=== PATIENT | male | born 1960 | race African-American/Black ===

== ENCOUNTER 2018-11-23 10:57 | Day surgery (SDC) | payer OTHER ==
[2018-11-22 13:21] VITALS: BMI 24.8
[~2018-11-23 10:57] MED LIST: ACETAMINOPHEN 325 MG TABLET (FP) PO PRN; OFLOXACIN 0.3% OPHTHALMIC SOLUTION 5 ML BOTTLE OP SCH; TRIAMCINOLONE ACET 40MG/1ML VIAL IJ ONE
[2018-11-23 11:18] VITALS: TEMP 97.5
[2018-11-23] MEDS ORDERED: OFLOXACIN 0.3% OPHTHALMIC SOLUTION 5 ML BOTTLE ONE (11:21)
[2018-11-23] MEDS ORDERED: MIDAZOLAM HCL 2 MG/2 ML SINGLE DOSE VIAL ONE (11:50)
[2018-11-23] MEDS ORDERED: TRIAMCINOLONE ACET 40MG/1ML VIAL ONE (12:06)
[2018-11-23] MEDS ORDERED: TETRACAINE 0.5% OPHTH SOLN 2 ML BOTTLE OS ONE (12:31)
[2018-11-23] MEDS ORDERED: POVIDONE-IODINE 5% OPHTHALMIC PREP 30 ML SOLUTION OS ONE (12:32)
[2018-11-23] MEDS ORDERED: LIDOCAINE 1%/EPI 1:100000 (20 ML MULTI DOSE VIAL) IJ ONE ×2 (12:38)
[2018-11-23] MEDS ORDERED: BSS (NA/CA/MG/K) BALANCED SALT SOLUTION OPHTH SOLN 15 ML BOTTLE OS ONE (12:38)
[2018-11-23] MEDS ORDERED: TRIAMCINOLONE ACET 40MG/1ML VIAL IJ ONE (13:04)
[2018-11-23] MEDS ORDERED: ONDANSETRON 4 MG/2 ML VIAL IVPUSH PRN (13:46)
--- NOTE | 2018-11-23 14:01 | OP ---
DATE OF OPERATION: DATE OF DICTATION: 11/23/2018 PREOPERATIVE DIAGNOSIS: Recurrent pterygium, left eye. POSTOPERATIVE DIAGNOSIS: Recurrent pterygium, left eye. PROCEDURE: Excision of recurrent pterygium with conjunctival autograft. ANESTHESIA: Topical MAC. COMPLICATIONS: None. PROCEDURE: The patient was brought to the operating room and correctly identified. He was then prepped and draped in the usual sterile fashion including 5% Betadine solution in the conjunctival sac and eyelid drape. An eyelid speculum was then placed into the left eye. The posterior border of the recurrent pterygium was marked and 2 relaxing incisions were made superior and inferiorly in the recurrent pterygium. The pterygium was then bluntly dissected from the cornea using sharp Wai scissors. Care was made to dissect due to bare sclera. After the pterygium was freed from the corneal surface, a significant amount of conjunctival retraction was noted. The margins were freshened and the conjunctival defect measured. The conjunctival defect measured 4.5 mm vertically x 5.5 mm horizontally. A small specimen was sent for histopathologic evaluation. Some of the subconjunctival fibrovascular tissue was dissected for approximately 1 mm underneath the remaining conjunctival edges. Attention was then placed to the superior temporal conjunctiva and appropriate sized conjunctival autograft was marked and then created by injecting lidocaine 1% with epinephrine subconjunctivally and then dissecting the conjunctiva graft using Wai scissors, as well as tissue forceps. The conjunctival autograft was then brought over to the nasal conjunctival defect and maintaining its orientation, sutured in place with a total of five 10-0 nylon interrupted sutures. The conjunctival autograft was noted to be well secured, approximately 1 mm back from the limbus. Subconjunctival Kenalog was given at the nasal conjunctiva. Topical vancomycin and Betadine was given. The eye patched and the patient discharged from the operating room in stable condition. ANSLEY HUTCHINSON M.D. [id number] MTDD
[2018-11-23 14:22] VITALS: BP 123/88; PULSE 70
--- NOTE | 2018-11-25 17:14 | PATH ---
Surgical Pathology Report Patient Name: GIULIANA ODEN [facility]. Rec. #: [id number] /Age/Gender: 1960 (Age: 58) / M Account: [id number] Location: [facility] SURGICAL Taken: 11/23/2018 Received: 11/24/2018 Reported: 11/25/2018 Physicians: Escobar Price M.D. Specimen(s) Received PTERYGIUM, LEFT EYE Clinical History Recurrent pterygium left eye Final Diagnosis EYE, LEFT, PTERYGIUM, EXCISION: PTERYGIUM. Electronically Signed Arianna Rodriguez M.D. Gross Description Received in formalin, labeled "pterygium left eye" is a garcia, irregular portion of soft tissue measuring 0.3 cm. in greatest dimension. The specimen is submitted in toto in one cassette. /11/24/2018 saudi11/24/2018
== END 2018-11-23 15:37 | disposition home or self-care (01) ==
LOC: JASU-SURG 10:57
PROVIDERS: ATTEND Ophthalmology
PROC: 08U107Z Supplement of Left Eye with Autologous Tissue Substitute, Open Approach (ICD-10-PCS; principal; 2018-11-23 12:00)
DX: H11.062 Recurrent pterygium of left eye (principal)
CPT/HCPCS: 88304-TC